=== PATIENT | female | born 1945 | race Caucasian/White ===

== ENCOUNTER 2024-07-18 06:45 | Observation (INO) | payer MEDICARE ==
[2024-07-12 15:59] LABS: BASOPHILS % (AUTO) 0.3 % (0-1); EOSINOPHILS # (AUTO) 0.2 X10'3 (0-0.9); EOSINOPHILS % (AUTO) 2.5 % (0-6); LYMPHOCYTES # (AUTO) 1.3 X10'3 (1.1-4.8); LYMPHOCYTES % (AUTO) 18.5 % (21-51); MEAN CORPUSCULAR HEMOGLOBIN 32.6 PG (27.0-31.0); MEAN CORPUSCULAR HGB CONC 32.8 g/dL (33.0-36.5); MEAN CORPUSCULAR VOLUME 99.4 FL (78-98); MEAN PLATELET VOLUME 8.3 FL (7.4-10.4); NEUTROPHILS # (AUTO) 4.5 X10'3 (1.8-7.7); NEUTROPHILS % (AUTO) 64.7 % (42-75); PRE OP HEMOGLOBIN 12.8 g/dL (12.0-16.0); PRE OP PLATELET COUNT 243 X10'3 (140-440); RED BLOOD COUNT 3.93 X10'6 (4.20-5.60)
[2024-07-12 16:13] LABS: ALBUMIN 3.4 G/DL (3.4-5.0); ALKALINE PHOSPHATASE 65 IU/L (46-116); BLOOD UREA NITROGEN 19 MG/DL (7-18); BUN/CREATININE RATIO 24.7 (10.0-20.0); CALCIUM 9.1 MG/DL (8.5-10.1); CHLORIDE 104 MMOL/L (99-107); CREATININE 0.77 MG/DL (0.40-0.90); PRE OP ALT 32 U/L (30-65); PRE OP ANION GAP 8 (8-16); PRE OP AST 24 U/L (10-37); PRE OP BILIRUB, TOTAL 0.3 MG/DL (0.0-1.0); PRE OP GLUCOSE 97 MG/DL (70-104); PRE OP POTASSIUM 4.2 MMOL/L (3.4-5.1); PRE OP SODIUM 143 MMOL/L (135-145); TOTAL CARBON DIOXIDE 30.6 MMOL/L (24-32); TOTAL PROTEIN 6.9 G/DL (6.4-8.2); eGFR 72 ML/MIN
[~2024-07-18] VITALS: Ht 157.5 cm; Wt 63.0 kg
[2024-07-18] VITALS (31 sets, daily range): BP systolic 105–151; BP diastolic 57–87; PULSE 69–98; RESP 10–20; TEMP 97.1–98.1; O2SAT 92–100
[~2024-07-18 06:45] MED LIST: SULF1TAB49 PO
[2024-07-18] MEDS ORDERED: LIDOcaine 1% (10mg/ml)w/preservative inj. 20ml MDV ONE (07:14)
[2024-07-18] MEDS ORDERED: BUPIVACAINE liposomal/PF 13.3 MG/ML vial IM ONE (07:14)
[2024-07-18] MEDS ORDERED: methylene blue (5mg/ml) 50mg/10ml ampul IV ONE (07:14)
[2024-07-18] MEDS ORDERED: BUPIVAcaine 2.5mg/ml inj 50ml vial (contains preservative) ONE (07:14)
[2024-07-18] MEDS: famotidine 20mg tablet PO ONE (07:51)
[2024-07-18] MEDS: ringers solution, lacted 1,000 ML IV SCH ×2 (07:53→10:20)
[2024-07-18] MEDS: clindamycin-Cleocin 900mg/D5W 50 ML IV ONE (07:54)
[2024-07-18] MEDS: gentamicin inj 250 MG in normal saline 100ml IV soln 93.75 ML IV ONE (07:54)
[2024-07-18] MEDS ORDERED: cloNIDine hcl/PF 100mcg/ml inj ONE (08:27)
[2024-07-18] MEDS ORDERED: sevoflurane 250ml liquid IH ONE (08:32)
[2024-07-18] MEDS ORDERED: fentaNYL/PF 50MCG/1 ML 2ML syringe ONE (08:37)
[2024-07-18] MEDS ORDERED: ePHEDrine 50MG/ML INJ. ONE (09:21)
[2024-07-18] MEDS ORDERED: 0.9 % SODIUM CHLORIDE 10 ML VIAL ONE (09:21)
[2024-07-18] MEDS ORDERED: propofol inj 20 ML IV ONE (09:21)
[2024-07-18] MEDS ORDERED: ROPIVAcaine 0.5% (5mg/ml) 30ml vial ONE (09:21)
[2024-07-18] MEDS ORDERED: midazolam 1 mg/ML 2ml injection ONE (09:21)
[2024-07-18] MEDS ORDERED: dexamethasone sod phosphate 4mg/ml inj. ONE ×2 (09:21→10:31)
[2024-07-18] MEDS ORDERED: LIDOcaine 2% (20mg/ml) 5ml vial ONE (09:21)
[2024-07-18] MEDS ORDERED: morphine 2 MG/ML inj. syringe IV PRN ×2 (10:20→12:15)
[2024-07-18] MEDS ORDERED: ondansetron/PF 4mg/2ml inj IV PRN ×2 (10:20→12:15)
[2024-07-18] MEDS ORDERED: hydrALAZINE 20mg/ml inj. IV PRN (10:20)
[2024-07-18] MEDS ORDERED: morphine 4 MG/ML inj SYRINge IV PRN (10:20)
[2024-07-18] MEDS ORDERED: proCHLORperazine 10 MG/2 ml inj IV PRN (10:20)
[2024-07-18] MEDS ORDERED: meperidine/PF 25mg/ml syringe IV PRN ×2 (10:20)
[2024-07-18] MEDS ORDERED: labetalol 20mg/4ml (5mg/ml) syringe IV PRN (10:20)
[2024-07-18] MEDS ORDERED: ondansetron/PF 4mg/2ml inj ONE (10:31)
[2024-07-18] MEDS: methylene blue (5mg/ml) 50mg/10ml ampul IV ONE (10:32)
[2024-07-18] MEDS: BUPIVAcaine 2.5mg/ml inj 50ml vial (contains preservative) IJ ONE (11:23)
[2024-07-18] MEDS ORDERED: acetaminophen 1,000mg/100ml IV 100 ML IV ONE (11:34)
[2024-07-18] MEDS ORDERED: morphine 10mg/ml inj. ONE (11:34)
[2024-07-18] MEDS: acetaminophen 1,000mg/100ml IV 100 ML IV ONE (11:44)
[2024-07-18] MEDS: meperidine/PF 25mg/ml syringe IV PRN (12:11)
[2024-07-18] MEDS: potassium 20mEq/D5LR 1,000 ML IV SCH (15:56)
[2024-07-18] MEDS: gentamicin inj 80 MG in normal saline 100ml IV soln 100 ML IV SCH (15:56)
[2024-07-18] MEDS ORDERED: gentamicin in saline, iso-osm 80 MG/50 ML premix IV SCH (16:00)
[2024-07-18] MEDS: clindamycin-Cleocin 900mg/D5W 50 ML IV SCH (16:14)
[2024-07-19] MEDS: HYDROcodone/acetaminophen 5mg/325mg tablet PO PRN (00:21)
[2024-07-19 06:00] VITALS: BP 117/60; PULSE 74; RESP 14; TEMP 98.6; O2SAT 93
[2024-07-19 06:01] LABS: BASOPHILS % (AUTO) 0.4 % (0-1); EOSINOPHILS % (AUTO) 0.6 % (0-6); HEMATOCRIT 34.7 % (35.0-45.0); HEMOGLOBIN 11.5 g/dl (12.0-16.0); LYMPHOCYTES # (AUTO) 1.5 X10'3 (1.1-4.8); LYMPHOCYTES % (AUTO) 19.8 % (21-51); MEAN CORPUSCULAR HEMOGLOBIN 32.7 PG (27.0-31.0); MEAN CORPUSCULAR VOLUME 99.1 FL (78-98); MEAN PLATELET VOLUME 8.7 FL (7.4-10.4); MONOCYTES # (AUTO) 0.9 X10'3 (0-0.9); MONOCYTES % (AUTO) 11.8 % (2-12); NEUTROPHILS # (AUTO) 5.1 X10'3 (1.8-7.7); NEUTROPHILS % (AUTO) 67.4 % (42-75); PLATELET COUNT 218 X10'3 (140-440); RED CELL DISTRIBUTION WIDTH 13.6 % (11.5-14.5); WHITE BLOOD COUNT 7.5 X10'3 (4.5-11.0)
[2024-07-19 07:50] VITALS: RESP 14; O2SAT 93
[2024-07-19 10:00] VITALS: BP 107/47; PULSE 83; RESP 18; TEMP 98.4; O2SAT 94
[2024-07-19 14:27] VITALS: RESP 16
== END 2024-07-19 15:34 | disposition home or self-care (01) ==
LOC: PAS 06:45 → PAS IN 12:25 → SUR 3N 14:20
PROVIDERS: ADMIT Surgery; ATTEND Surgery
DX: C50.212 Malignant neoplasm of upper-inner quadrant of left female breast (principal); L98.9 Disorder of the skin and subcutaneous tissue, unspecified; M79.7 Fibromyalgia; F41.9 Anxiety disorder, unspecified; Z88.0 Allergy status to penicillin; Z79.899 Other long term (current) drug therapy; Z17.421 Hormone receptor negative with human epidermal growth factor receptor 2 negative status
CPT/HCPCS: 19301; 38525; 38900; 76098; 80053; 82948; 86885; 86900; 86901; 93005; 96365; 96366; 96368; 96375; A4215; A4615; A4618; A7000; C9290; G0378; J3480; J3490; J7120; Q9968; 36415; 85025; 87081; 88304; 88305; 88307; 88331; 88332; 88341; 88342; A6258; A6449; J0131; J0735; J1100; J1580; J2003; J2175; J2250; J2274; J2405; J2704; J2795; J3010